=== PATIENT | male | born 2005 | race Caucasian/White ===

== ENCOUNTER 2023-08-25 19:18 | Emergency (ER) | payer SELFPAY ==
[2023-08-25 19:24] VITALS: BP 133/67; PULSE 86; RESP 18; TEMP 36.8; O2SAT 96; BMI 22.1
--- NOTE | 2023-08-25 19:34 | XRR_ITS ---
PROCEDURE INFORMATION: Exam: XR Right Femur Exam date and time: 08/25/2023 7:54 PM Age: 17 years old Clinical indication: Injury or trauma; Thigh or upper leg; Right; Patient HX: RT lower extremity pain after blunt trauma; Abrasion to distal RT femur approx 2in above knee; No previous injury TECHNIQUE: Imaging protocol: Radiologic exam of the right femur. Views: 2 views. COMPARISON: No relevant prior studies available. FINDINGS: Bones/joints: The femur is grossly intact. No evidence of fracture or aggressive osseous lesion. Soft tissues: Grossly unremarkable. XR/XR femur RT min 2V* [id number] IMPRESSION: 1. No evidence of fracture or malalignment.
--- NOTE | 2023-08-25 19:46 | W.ED.EXTPRO ---
HPI - Extremity Problem General: Chief complaint: Extremity Injury, Lower Stated complaint: wood beam fell on r leg mostly Time Seen by Provider: 08/25/23 19:21 History of Present Illness: 17-year-old male patient comes in today with injury to the right anterior thigh. 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 Patient has difficulty with weightbearing to the right leg. Patient been using crutches to ambulate. Patient denies any chronic medical problems. Review of Systems General: Reports: 10 or more systems reviewed and unremarkable except in HPI and below Musc: Reports: extremity pain and extremity swelling Physical Exam Const: COMMON NORMALS: alert HENMT: COMMON NORMALS: normocephalic HEAD & SCALP: normocephalic Neck/C-Spine: COMMON NORMALS: full ROM Resp: COMMON NORMALS: normal respiratory effort Cardio: COMMON NORMALS: regular rate RATE: regular rate GI: PALPATION: No Tenderness to palpation present (GI) Back/Pelvis: COMMON NORMALS: thoracic and lumbar spine normal to inspection Extremity: RIGHT UPPER EXTREMITY: Yes shoulder joint (Normal range of motion, anterior superficial abrasions) and Yes lower arm (Superficial abrasions) RIGHT LOWER EXTREMITY: Yes upper leg (Distal linear abrasion anterior thigh) Neuro: SENSORIUM/ORIENTATION: Yes alert Skin: COMMON NORMALS: turgor normal GENERAL SKIN EXAM: turgor normal Course Vital Signs: Vital signs: Vital Signs Temperature 98.2 F 08/25/23 19:24 Pulse Rate 84 08/25/23 20:27 Respiratory Rate 16 08/25/23 20:27 Blood Pressure 128/84 08/25/23 20:27 Pulse Oximetry 99 08/25/23 20:27 Oxygen Delivery Me thod Room Air 08/25/23 19:24 MDM - Extremity (Nontraumatic) Medical Decision Making 17-year-old male patient comes in today for complaints of injury to the right upper leg. On exam patient has a linear contusion horizontally to the right distal thigh. Patient reports pain with flexion of the knee and weightbearing. Distal pulses and sensation are intact. Differential diagnosis includes fracture, hematoma, sprain. Lab Data Radiology Impressions Femur X-Ray 08/25/23 19:34 IMPRESSION: 1. No evidence of fracture or malalignment. All radiology interpretation(s) finalized by discharge Discharge Plan Discharge Patient Disposition: Home Clinical Impression: Hematoma of thigh Qualifiers: Encounter type: initial encounter Laterality: right Qualified Code(s): S70.11XA - Contusion of right thigh, initial encounter Condition: Stable Discharge Orders: Discharge ED (Routine); Ordered 08/25/23 Ordered By: Haile Ortiz Referrals: Kirstin Grubbs FNP [Family Provider] - Discharge Diet: Usual diet Discharge Activity: Increase activity as tolerated Patient Instructions: Hematoma (ED) Activity Restrictions/Additional Instructions: Activity as tolerated. Gentle stretching and range of motion exercises. Use ice packs to the area for comfort and pain. Use acetaminophen and/or ibuprofen for further pain. Drink plenty of water with medications. Follow-up with primary care for further instructions. Return to ED for new concerns. Coding Level of Care Code ED Winding Machine Operator for Denise Fam
[2023-08-25 20:09] VITALS: BP 128/84; PULSE 76; RESP 18; O2SAT 96
[2023-08-25 20:27] VITALS: BP 128/84; PULSE 84; RESP 16; O2SAT 99
== END 2023-08-25 20:29 | disposition home or self-care (01) ==
PROVIDERS: Emergency Provider Nurse Practitioner Family; Family Provider Nurse Practitioner Family
DX: S70.11XA Contusion of right thigh, initial encounter (principal); W20.8XXA Other cause of strike by thrown, projected or falling object, initial encounter
CPT/HCPCS: 73552; 99283